=== PATIENT | female | born 1965 | race Caucasian/White ===

== ENCOUNTER 2020-02-22 19:48 | Emergency (ER) | payer OTHER, SELFPAY ==
--- NOTE | ~2020-02-22 | CT_ITS ---
EXAMINATION: CT abdomen pelvis w con DATE: 02/22/2020 21:15 INDICATION: Abdominal pain. Fever. TECHNIQUE: Computed tomography (CT) of the abdomen and pelvis was performed with 100 mL Omnipaque 350 intravenous contrast. Automated exposure control and iterative reconstruction technique were employe d. The dose-length product was 437.75 mGy-cm. COMPARISON: None. FINDINGS: The visualized portions of the lung bases demonstrate mild atelectasis. No pleural effusion . The heart size is normal. No pericardial effusion. The liver demonstrates focal steatosis adjacent to ligamentum teres. There is a 5 mm cyst in the liver. The gallbladder, spleen, pancreas, adrenal gl ands, and kidneys are normal. There are scattered diverticula in the colon. There is fat stranding ar ound a sigmoid diverticulum with local bowel wall thickening, consistent with diverticulitis. The shannan endix is normal. There are no dilated loops of bowel. There are no pathologically enlarged lymph node s. There is no free intraperitoneal fluid. There is severe lumbar spondylosis. There is moderate thor acic spondylosis. IMPRESSION: 1. Acute sigmoid diverticulitis. No perforation or abscess. Reviewed, dictated and finalized at location A.
[2020-02-22 19:54] VITALS: BP 147/83; PULSE 94; RESP 19; TEMP 37.2; O2SAT 100
--- NOTE | 2020-02-22 20:25 | ED.ABDPAIN ---
HPI - Abdominal Pain General Chief Complaint: Abdominal Pain Stated Complaint: lower abd pain, fever Time Seen by Provider: 02/22/20 20:04 History of Present Illness HPI narrative: 54 y/o female with a history of ulcerative colitis, BOSSMAN, anxiety presents to ED with complaint of abd pain. She reports feeling fatigued 2 days ago then noted a fever of 101 and abd pain that came on yesterday. She describes the pain as feeling sharp like gas pains. Pain waxes and wanes and she has felt somewhat distended. She denies nausea, vomiting, diarrhea or bloody stools, constipation, or any urinary or vaginal symptoms. She has not had any recent travel or known exposure to illness. She reports decrease in appetite and fluid intake. She is currently postmenopausal. Related Data Allergies Allergy/AdvReac Type Severity Reaction Status Date / Time Sulfa (Sulfonamide Allergy Rash Verified 02/22/20 19:57 Antibiotics) Review of Systems Review of Systems: Narrative: CONSTITUTIONAL: Reports fever T-max of 101 2 days ago, 99 today. Denies chills. EYES: Denies visual changes, redness, or discharge. ENT: Denies rhinorrhea, congestion, sore throat, or otalgia. CARDIOVASCULAR: Denies chest pain, palpitations, or edema. RESPIRATORY: Denies cough or dyspnea. GASTROINTESTINAL: Reports abdominal pain without nausea vomiting or diarrhea. No blood in stools. GENITOURINARY: Denies dysuria or hematuria. Denies any vaginal discharge. SKIN: Denies rash or itching. MUSCULOSKELETAL: Denies back pain, joint pain, or myalgia. NEUROLOGIC: Denies headache, numbness, or weakness. PSYCHIATRIC: Reports history of anxiety and insomnia.. PMFSH Past Medical History Medical History (Updated 02/23/20 @ 00:00 by [facility]) Anxiety Insomnia disorder BOSSMAN (obstructive sleep apnea) Ulcerative colitis Family History Family History (Updated 02/22/20 @ 20:31 by [facility]) Father Cancer of appendix Social History Social History (Updated 02/22/20 @ 20:32 by [facility]) Smoking status: Never smoker Alcohol intake: current Alcohol use details: Occasional Substance use: never Living arrangements: with family Gender identity (if verbalized by the patient): Female Exam Narrative: Exam Narrative: GENERAL: Well-appearing, well-nourished, and in no acute distress. HEAD: Normocephalic, atraumatic. EYES: sclera anicteric ENT: Nares clear, no rhinorrhea or epistaxis. Mucous membranes moist. NECK: Supple. CHEST: Clear to auscultation. No respiratory distress. HEART: Regular rate and rhythm. No murmur heard. ABDOMEN: Soft, non-distended, normal active bowel sounds. No guarding or rebound tenderness. Mildly tender midline on palpation. EXTREMITIES: Normal range of motion. No edema. SKIN: Warm, dry, no rash. NEURO: No focal deficits. Alert and oriented x3. PSYCH: Normal mood and affect. Course Course Emergency Course: 54-year-old female with a history of ulcerative colitis, BOSSMAN, anxiety, insomnia presented with chief complaint of abdominal pain. Given leukocytosis and history of fever obtain CT of the abdomen and pelvis which revealed diverticulitis of the sigmoid colon. Will treat on an outpatient basis this patient is not experiencing nausea or vomiting and symptoms are mild at this point. Instructed to follow-up with her PCP in 72 hours for recheck and return to the emergency department if she is unable to keep her meds down, increase in fevers or pain. Vital Signs Vital signs: Vital Signs Temperature 37.2 C 02/22/20 19:54 Pulse Rate 94 02/22/20 19:54 Respiratory Rate 19 02/22/20 19:54 Blood Pressure 147/83 H 02/22/20 19:54 Pulse Oximetry 100 02/22/20 19:54 Temperature 36.7 C 02/22/20 22:16 Pulse Rate 78 02/22/20 22:16 Respiratory Rate 18 02/22/20 22:16 Blood Pressure 144/78 H 02/22/20 22:16 Pulse Oximetry 98 02/22/20 22:16 MDM - Abdominal Pain Differential Diagnosis Dif
[2020-02-22 20:45] LABS: Basophils Absolute Auto 0.1 K/mm3 (0.0-0.1); Basophils Percent Auto 0.4 % (0.2-1.2); Eosinophils Absolute Auto 0.3 K/mm3 (0-0.3); Eosinophils Percent Auto 2.3 % (0-4.4); Hemoglobin 12.3 g/dL (12.0-15.0); Immature Granulocyte Absolute 0.04 K/mm3 (0.00-0.031); Immature Granulocyte Percent A 0.3 % (0-0.5); Lymphocytes Absolute Auto 2.57 K/mm3 (0.9-3.2); Lymphocytes Percent Auto 20.4 % (18.3-44.2); Mean Corpuscular HGB Conc 32.4 g/dl (32-36); Mean Corpuscular Hemoglobin 28.5 pg (26-34); Mean Corpuscular Volume 88.2 fl (80-100); Mean Platelet Volume 10.7 fl (7.4-10.4); Monocytes Absolute Auto 0.8 K/mm3 (0.1-0.6); Monocytes Percent Auto 6.6 % (2.6-8.5); Neutrophils Absolute Auto 8.8 K/mm3 (1.3-6.7); Platelet Count Result 234 k/mm3 (150-375); Red Blood Count 4.31 M/mm3 (4.2-5.4); Red Cell Distribution Width 12.3 % (11.5-14.5); White Blood Count 12.6 K/mm3 (4.5-10.0)
[2020-02-22 20:52] LABS: Add Urine Microscopic? YES; Amorphous Sediment Urine Few; Appearance Urine Clear (Clear); Bacteria Urine Trace /hpf; Bilirubin Urine Negative (Negative); Blood Urine 1+ (Negative); Color Urine Straw (Yellow); Glucose Urine UA Negative (Negative); Ketones Urine Trace mg/dL (Negative); Leukocyte Esterase Ur Trace LEU/UL (Negative); Mucus Urine Rare /lpf; Nitrate Urine Negative (Negative); Protein Urine Negative (Negative); Specific Grav Ur 1.009 (1.001-1.035); Squamous Epithelial Cell Urine Occasional /hpf (Few); Urobilinogen Urine Negative mg/dL (<2.0); WBC Urine 0-3 /hpf
[2020-02-22 20:57] LABS: Alanine Aminotransferase 21 U/L (4-35); Albumin Level 4.6 g/dL (3.5-5.1); Alkaline Phosphatase 61 U/L (38-126); Aspartate Amino Transferase 28 U/L (14-36); Bilirubin,Total 0.5 mg/dL (0.2-1.3); Blood Urea Nitrogen 11 mg/dL (7-17); Calcium 9.5 mg/dL (8.4-10.2); Carbon Dioxide 26 mmol/L (22-30); Chloride 100 mmol/L (98-107); Estimated CRCL calculation 79 ml/min; Estimated Glomerular Filt Rate > 60; Glucose 95 mg/dL (65-105); Lipase 68 U/L (23-300); Potassium 3.8 mmol/L (3.4-5.0); Sodium 134 mmol/L (137-145)
[2020-02-22 21:38] VITALS: BP 138/82; PULSE 86; RESP 18; O2SAT 99
[2020-02-22] MEDS: CIPROFLOXACIN 500 MG TAB PO (21:59)
[2020-02-22] MEDS: metroNIDAZOLE 250 MG TABLET 500 MG PO (22:00)
[2020-02-22 22:16] VITALS: BP 144/78; PULSE 78; RESP 18; TEMP 36.7; O2SAT 98
== END 2020-02-22 22:18 | disposition home or self-care (01) ==
PROVIDERS: Nurse Practitioner
DX: K57.32 Diverticulitis of large intestine without perforation or abscess without bleeding (principal); G47.33 Obstructive sleep apnea (adult) (pediatric); K51.90 Ulcerative colitis, unspecified, without complications
CPT/HCPCS: 36415; 74177; 80053; 81001; 83690; 85025; 99284; A9270; Q9967